=== PATIENT | male | born 1980 ===

== ENCOUNTER 2018-06-30 11:13 | Inpatient (IN) | payer MEDICAID ==
[2018-06-30 12:03] LABS: BASO # 0.1 K/uL (0.0-0.2); BASO % 1.5 % (0.0-2.0); EOS # 0.2 K/uL (0.0-0.7); EOS % 4.8 % (0.0-4.0); HEMOGLOBIN 14.1 g/dL (12.0-18.0); LYMPH # 1.4 K/uL (1.0-4.3); LYMPH % 30.6 % (20.0-40.0); MEAN CELL VOLUME 92.6 fL (80.0-94.0); MEAN CORPUSCULAR HEMOGLOBIN 31.5 pg (27.0-31.0); MEAN PLATELET VOLUME 9.3 fL (7.2-11.7); MONO # 0.4 K/uL (0.0-0.8); MONO % 8.7 % (0.0-10.0); NEUT # 2.6 K/uL (1.8-7.0); NEUT % 54.4 % (50.0-75.0); RBC 4.47 Mil/uL (4.40-5.90); RED CELL DISTRIBUTION WIDTH 14.1 % (11.5-14.5); WHITE BLOOD COUNT 4.7 K/uL (4.8-10.8)
[2018-06-30 12:05] VITALS: O2SAT 97
[2018-06-30 12:08] LABS: SQUAMOUS EPITHIAL < 1 /hpf (0-5); URINE BILIRUBIN NEGATIVE (NEGATIVE); URINE BLOOD NEGATIVE (NEGATIVE); URINE CLARITY Hazy (Clear); URINE COLOR Yellow (YELLOW); URINE GLUCOSE (UA) 3+ mg/dL (Normal); URINE LEUKOCYTE ESTERASE NEG Leu/uL (Negative); URINE PROTEIN NEGATIVE (NEGATIVE); URINE UROBILINOGEN NORMAL mg/dL (0.2-1.0)
[2018-06-30 12:18] LABS: ALB/GLOB RATIO 1.7 (1.0-2.1); ALBUMIN 4.3 g/dL (3.5-5.0); ALT/SGPT 15 U/L (21-72); AST/SGOT 31 U/L (17-59); BLOOD UREA NITROGEN 12 mg/dL (9-20); CALCIUM 9.1 mg/dl (8.6-10.4); GFR NON-AFRICAN AMERICAN > 60
[2018-06-30 12:28] LABS: BARBITURATES, UR NEGATIVE (NEGATIVE); BENZODIAZEPINES, UR NEGATIVE (NEGATIVE); OPIATES, UR NEGATIVE (NEGATIVE); PHENCYCLIDINE, UR NEGATIVE (NEGATIVE)
--- NOTE | 2018-06-30 13:42 | C.PDOC ---
Time Seen by Provider: 06/30/18 11:19 Chief Complaint (Nursing): Psychiatric Evaluation Past Medical History Vital Signs: Last Vital Signs Temp 98.9 F 06/30/18 12:04 Pulse 90 06/30/18 12:04 Resp 16 06/30/18 12:04 BP 133/79 06/30/18 12:04 Pulse Ox 97 06/30/18 12:04 - Medical History PMH: Anxiety, Bipolar Disorder, Depression, Diabetes, HTN, Hypercholesterolemia, Schizophrenia Denies: Hepatitis, HIV, Chronic Kidney Disease, Seizures, Sexually Transmitted Disease - [facility] Procedures GROUP PSYCHOTHERAPY (05/21/18) INDIV PSYCHOTHERAPY FOR SUBSTANCE ABUSE, MOTIVATION ENHANCE (05/21/18) INDIVIDUAL PSYCHOTHERAPY, SUPPORTIVE (05/21/18) Family History: States: Unknown Family Hx - Social History Hx Alcohol Use: No Hx Substance Use: No - Immunization History Hx Tetanus Toxoid Vaccination: No Hx Influenza Vaccination: No Hx Pneumococcal Vaccination: No ED Course And Treatment - Laboratory Results Result Diagrams: 06/30/18 11:57 06/30/18 11:57 Lab Results: Total Bilirubin 0.5 mg/dL (0.2-1.3) 06/30/18 11:57 AST 31 U/L (17-59) 06/30/18 11:57 ALT 15 U/L (21-72) L 06/30/18 11:57 Alkaline Phosphatase 63 U/L (38-126) 06/30/18 11:57 Total Protein 6.9 g/dL (6.3-8.3) 06/30/18 11:57 Albumin 4.3 g/dL (3.5-5.0) 06/30/18 11:57 Globulin 2.6 gm/dL (2.2-3.9) 06/30/18 11:57 Albumin/Globulin Ratio 1.7 (1.0-2.1) 06/30/18 11:57 Urine Color Yellow (YELLOW) 06/30/18 11:57 Urine Clarity Hazy (Clear) 06/30/18 11:57 Urine pH 7.0 (5.0-8.0) 06/30/18 11:57 Ur Specific [place] 1.015 (1.003-1.030) 06/30/18 11:57 Urine Protein Negative mg/dL (NEGATIVE) 06/30/18 11:57 Urine Glucose (UA) 3+ mg/dL (Normal) H 06/30/18 11:57 Urine Ketones Negative mg/dL (NEGATIVE) 06/30/18 11:57 Urine Blood Negative (NEGATIVE) 06/30/18 11:57 Urine Nitrate Negative (NEGATIVE) 06/30/18 11:57 Urine Bilirubin Negative (NEGATIVE) 06/30/18 11:57 Urine Urobilinogen Normal mg/dL (0.2-1.0) 06/30/18 11:57 Ur Leukocyte Esterase Neg Sae/uL (Negative) 06/30/18 11:57 Urine WBC (Auto) 1 /hpf (0-5) 06/30/18 11:57 Urine RBC (Auto) < 1 /hpf (0-3) 06/30/18 11:57 Ur Squamous Epith Cells < 1 /hpf (0-5) 06/30/18 11:57 O2 Sat by Pulse Oximetry: 97 Disposition - Disposition
--- NOTE | 2018-06-30 13:43 | C.PDOC ---
History Of Present Illness 38 year old male is brought in by [facility] from [facility] services for psychiatric evaluation. Reports he has been feeling depressed and thoughts of hurting himself for the past 3 days. Denies having any specific plan. States he takes multiple psychiatric medications but he ran out one week ago. Admits to drinking alcohol heavily for 3 days. Complains of left upper quadrant pain. Denies any nausea, vomiting, diarrhea, fever, shortness of breath, or chest pain. Time Seen by Provider: 06/30/18 11:19 Chief Complaint (Nursing): Psychiatric Evaluation History Per: Patient, EMS History/Exam Limitations: no limitations Onset/Duration Of Symptoms: Days Current Symptoms Are (Timing): Still Present Suicide/Self Injury Attempted (Context): None Modifying Factor(s): Alcohol Associated Symptoms: Depression, Suicidal Thoughts. denies: Suicidal Plan Past Medical History Reviewed: Historical Data, Nursing Documentation, Vital Signs Vital Signs: Last Vital Signs Temp 98.9 F 06/30/18 12:04 Pulse 90 06/30/18 12:04 Resp 16 06/30/18 12:04 BP 133/79 06/30/18 12:04 Pulse Ox 97 06/30/18 12:04 - Medical History PMH: Anxiety, Bipolar Disorder, Depression, Diabetes, HTN, Hypercholesterolemia, Schizophrenia Denies: Hepatitis, HIV, Chronic Kidney Disease, Seizures, Sexually Transmitted Disease Surgical History: No Surg Hx - [facility] Procedures GROUP PSYCHOTHERAPY (05/21/18) INDIV PSYCHOTHERAPY FOR SUBSTANCE ABUSE, MOTIVATION ENHANCE (05/21/18) INDIVIDUAL PSYCHOTHERAPY, SUPPORTIVE (05/21/18) Family History: States: No Known Family Hx - Social History Hx Alcohol Use: No Hx Substance Use: No - Immunization History Hx Tetanus Toxoid Vaccination: No Hx Influenza Vaccination: No Hx Pneumococcal Vaccination: No Review Of Systems Constitutional: Negative for: Fever, Sweats Cardiovascular: Negative for: Chest Pain Respiratory: Negative for: Shortness of Breath Gastrointestinal: Positive for: Abdominal Pain. Negative for: Nausea, Vomiting, Diarrhea Psych: Positive for: Depression, Suicidal ideation Physical Exam - Physical Exam Appears: Non-toxic, No Acute Distress, Other (flat affect) Skin: Warm, Dry Head: Normacephalic Eye(s): bilateral: Normal Inspection Oral Mucosa: Moist Neck: Supple Chest: Symmetrical Cardiovascular: Rhythm Regular Respiratory: No Rales, No Wheezing Gastrointestinal/Abdominal: Soft, Tenderness (mild LUQ tenderness ), No Guarding, No Rebound, Other (Neg Mcburney's point, Neg Caro's sign ) Back: No CVA Tenderness Extremity: Bilateral: Normal Color And Temperature, Normal ROM Neurological/Psych: Oriented x3, Normal Speech Gait: Steady ED Course And Treatment - Laboratory Results Result Diagrams: 06/30/18 11:57 06/30/18 11:57 Lab Results: Total Bilirubin 0.5 mg/dL (0.2-1.3) 06/30/18 11:57 AST 31 U/L (17-59) 06/30/18 11:57 ALT 15 U/L (21-72) L 06/30/18 11:57 Alkaline Phosphatase 63 U/L (38-126) 06/30/18 11:57 Total Protein 6.9 g/dL (6.3-8.3) 06/30/18 11:57 Albumin 4.3 g/dL (3.5-5.0) 06/30/18 11:57 Globulin 2.6 gm/dL (2.2-3.9) 06/30/18 11:57 Albumin/Globulin Ratio 1.7 (1.0-2.1) 06/30/18 11:57 Urine Color Yellow (YELLOW) 06/30/18 11:57 Urine Clarity Hazy (Clear) 06/30/18 11:57 Urine pH 7.0 (5.0-8.0) 06/30/18 11:57 Ur Specific [place] 1.015 (1.003-1.030) 06/30/18 11:57 Urine Protein Negative mg/dL (NEGATIVE) 06/30/18 11:57 Urine Glucose (UA) 3+ mg/dL (Normal) H 06/30/18 11:57 Urine Ketones Negative mg/dL (NEGATIVE) 06/30/18 11:57 Urine Blood Negative (NEGATIVE) 06/30/18 11:57 Urine Nitrate Negative (NEGATIVE) 06/30/18 11:57 Urine Bilirubin Negative (NEGATIVE) 06/30/18 11:57 Urine Urobilinogen Normal mg/dL (0.2-1.0) 06/30/18 11:57 Ur Leukocyte Esterase Neg Sae/uL (Negative) 06/30/18 11:57 Urine WBC (Auto) 1 /hpf (0-5) 06/30/18 11:57 Urine RBC (Auto) < 1 /hpf (0-3) 06/30/18 11:57 Ur Squamous Epith Cells < 1 /hpf (0-5) 06/30/18 11:57 O2 Sat by Pulse Oximetry: 97 (RA) Pulse Ox Interpretation: Normal Progress Note: Blood work, UA, UDS ordered and reviewed. Patient given PO pepcid for dyspepsia. 2:45pm- Patient medically cleared. 3:15pm- Patient accepted for psychiatric admission for schizoaffective disorder, alcohol abuse - Dr. York. Disposition - Disposition Forms: [employer] (Malay) - Scribe Statement The provider has reviewed the documentation as recorded by the Scribe Amy Vázquez All medical record entries made by the Scribe were at my direction and personally dictated by me. I have reviewed the chart and agree that the record accurately reflects my personal performance of the history, physical exam, medical decision making, and the department course for this patient. I have also personally directed, reviewed, and agree with the discharge instructions and disposition. Decision To Admit - Pt Status Changed To: Hospital Disposition Of: Inpatient - Admit Certification Admit to Inpatient:: After my assessment, the patient will require hospitalization for at least two midnights. This is because of the severity of symptoms shown, intensity of services needed, and/or the medical risk in this patient being treated as an outpatient. - . Bed Request Type: Psychiatry
--- NOTE | 2018-06-30 17:10 | PCM.BM ---
<Alicia Calles - Last Filed: 06/30/18 17:07> Treatment Plan Problems - Problems identified on initial assessmt Altered Sleep Pattern Date Initiated: 06/30/18 Time Initiated: 17:08 Assessment reference: NA Status: Active Social Isolation Date Initiated: 06/30/18 Time Initiated: 17:08 Assessment reference: NA Status: Active Ineffective Coping Date Initiated: 06/30/18 Time Initiated: 17:08 Assessment reference: NA Treatment assets and liabiliti Patient Assests: cooperative, insightful, ADL independent, negotiates basic needs, cognitively intact, good interpersonal skills Patient Liabilities: substance abuse (Alcohol when doesn't have meds) - Milieu Protocol Maintain good personal hygiene: daily Encourage regular showers, daily Remind patient to perform daily oral care, daily Assist patient to perform ADL's Conduct patient checks and document Observation sheet: Q15 minutes Maintain personal safety: every shift Educate patient to report safety concerns to staff, every shift Monitor environment for contraband/sharps Medication safety: Monitor for expected outcome, potential side effects: every shift, Assess barriers to learning: every shift, Assess readiness for medication education: every shift <Flora Conroy - Last Filed: 07/01/18 11:52> - Diagnosis (1) Depression Status: Acute Interventions: 07/01/18 11:57 * Assess/adjust medications daily and /or as needed * See patient on an individual basis 7x/week to assess symptoms of depression * Monitor for side effects & effectiveness of medications * <Antoinette Barros - Last Filed: 07/01/18 12:50> Family Contact Family involvement: Patient does not wish Family/SO involvement Family contact: Patient declines to allow family contact at present - Goals for Treatment Patient goals for treatment: "[facility] Discharge/Continuing Care - Education Needs Education Needs: Patient Medication, Patient Diagnosis/Disease Process, Patient Coping Skills - Discharge Discharge Criteria: Free of Suicidal thoughts, Ability to care for self, No longer exhibiting s/s of withdrawal, Reduction of target symptoms Discharge to:: Home, With Family - Treatment Team Participation Discussed with Family/SO: No Was Patient/Family/SO present at Treatment Team Meeting: Yes
--- NOTE | 2018-07-01 11:44 | PCM.PSYCH ---
Initial Psychiatric Evaluation - Initial Psychiatric Evaluation Type of Admission: Voluntary Legal Status: Capacity Chief Complaint (in patient's own words): "Depressed" History of Present Illness and Precipitating Events: 38 y/o male with no children. 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 Pt [facility] for depression, anxiety, and hearing voices. Pt has a history of depression, and states that he ran out of his medications over one week ago. Pt began drinking alcohol when he ran out of his medications. After 3 days he became depressed and started hearing voices.His last drink was 3 days ago. States that he went to the [place] ED, where he was seen by crisis and referred to [facility] but they brought him here for intake and medication management. Per pt, voices in his head were telling him to kill himself. He does not currently have a plan to kill himself. Pt has attempted suicide once in [place], where he tried to jump from a bridge. States that he police stopped him. Pt was hospitalized at [facility] in [place] at the time. When he is off his medications, he feels paranoid and begins hearing a female voice. Denies recent hallucinations.Pt has a history of trauma as a child. States that he saw any people as a child in the [place] civil war. Reports night jade, stating that he sees past trauma as they happened. PMHX: DM Medications: Metfromin , Januvia Psych Hx: PTSD, Alcohol Dependence, Major Depression Fam Psych: Unknown Current Medications: Active Medications Generic Name Dose Route Start Last Admin Trade Name Ivánq PRN Reason Stop Dose Admin Acetaminophen 650 mg 06/30/18 17:23 Tylenol 325mg Tab PO Q6 PRN Pain, Mild (1-3) Lorazepam 0.5 mg 06/30/18 17:21 06/30/18 17:46 Ativan PO 0.5 mg Q6 PRN Administration Anxiety Risperidone 1 mg 06/30/18 22:00 06/30/18 21:29 Risperdal Tab PO 1 mg HS MIMI Administration Trazodone HCl 50 mg 06/30/18 17:22 06/30/18 21:29 Desyrel PO 50 mg HS PRN Administration Insomnia Past Psychiatric History - Past Psychiatric History Previous Treatment History: Inpatient Pertinent Medical Hx (Current Medical&Sleep Prob, Allergies): Allergies Allergy/AdvReac Type Severity Reaction Status Date / Time No Known Allergies Allergy Verified 06/30/18 11:21 MetFORMIN [glucoPHAGE] 1,000 mg PO BID 05/22/18 Atorvastatin [Lipitor] 40 mg PO DAILY 30 Days #30 tab 05/27/18 Gabapentin [Neurontin] 200 mg PO TID 30 Days #180 cap 05/27/18 Nicotine 14 mg/24 hr [Nicoderm CQ] 1 patch TD DAILY 30 Days #30 patch 05/27/18 Risperidone [Risperdal M-TAB] 1 mg PO HS 30 Days #30 odt 05/27/18 Sertraline [Zoloft] 50 mg PO DAILY 30 Days #30 tab 05/27/18 traZODone [Desyrel] 50 mg PO HS 30 Days #30 tab 05/27/18 Review of Systems - Psychiatric Psychiatric: Abnormal Sleep Pattern, Anhedonia, Anxiety, Auditory Hallucinations, Difficulty Concentrating, Irritability, Mood Swings. absent: Homicidal Ideation, Suicidal Ideation Mental Status Examination - Personal Presentation Personal Presentation: Looks stated age - Affect Affect: Constricted - Motor Activity Motor Activity: Calm - Reliability in Providing Information Reliability in Providing Information: Good - Speech Speech: Organized - Mood Mood: Depressed, Anxious - Formal Thought Process Formal Thought Process: No Impairment - Cognitive Functions Orientation: Person, Place, Situation, Time Sensorium: Alert Attention/Concentration: Easily distracted Estimate of Intelligence: Average Judgement: Intact, as evidence by: Insight regarding need for hospitalization Memory: Recent intact, as evidence by: Ability to recall events of the day, Remote intact, as evidenced by: Ability to recall historical events - Risk Risk: Withdrawal, Diminished functioning - Strength & Assets Inventory Strength & Assets Inventory: Cooperative - Limitations Limitations: Other DSM 5 DX - DSM 5 DSM 5 Diagnosis: Schizoaffective d/o - depressed PTSD Alcohol use d/o -severe - Recommended/Plan of Treatment Treatment Recommendations and Plan of Treatment: Abilify and zoloft Taper with librium if neede Gabapentin for augmentation As needed medications All risks, benefits and alternatives of the meds discussed, and the pt agreed and understood. Attend groups and activities Supportive therapy and psychoeducation HI for abstinence CBT for relapse prevention Encourage MAT Refer to rehab or IOP, and self-help groups Teach healthy lifestyle methods, i.e. diet, exercise, meditation Smoking cessation with HI Nicotine patch if needed 34 min Projected ELOS: 4 days
[2018-07-01] MEDS: Multiple Vitamins Tab PO SCH (12:21)
[2018-07-02] MEDS: Multiple Vitamins Tab PO SCH (09:38)
--- NOTE | 2018-07-02 13:13 | PCM.PYCHPN ---
Psychiatric Progress Note - Psychiatric Progress Note Patient seen today, length of contact: 16 min Patient Chief Complaint: "Not good" Problems Identified/Issues Discussed: The pt is seen, chart reviewed, case discussed with staff. The pt is compliant with medications and reports no side-effects. Symptoms are improving but needs more time to stabilize. Pt attends groups and activities. Support given, psycho-education provided. After care discussed. Medication Change: Yes (meds adjusted) Medical Record Reviewed: Yes Mental Status Examination - Cognitive Function Orientation: Person, Place, Situation, Time Memory: Intact Attention: WNL Concentration: Poor Association: WNL Fund of Knowledge: WNL - Mood Mood: Depressed, Anxious - Affect Affect: Constricted - Speech Speech: Appropriate - Formal Thought Process Formal Thought Process: No Impairment - Suicidal Ideation Suicidal Ideation: No - Homicidal Ideation Homicidal Ideation: No Goal/Treatment Plan - Goal/Treatment Plan Need for Continued Stay: Discharge may exacerbated symptoms, Severe functional impairment Progress Toward Problem(s) and Goals/Treatment Plan: Continue medications Support and psychoeducation daily Attend groups and activities daily After care planning by ZENOBIA
[2018-07-03 06:34] VITALS: TEMP 98.3
[2018-07-03] MEDS: Multiple Vitamins Tab PO SCH (09:35)
--- NOTE | 2018-07-03 15:23 | PCM.PYCHPN ---
Psychiatric Progress Note - Psychiatric Progress Note Patient seen today, length of contact: 17 min Patient Chief Complaint: "Better today" Problems Identified/Issues Discussed: The pt is seen, chart reviewed, case discussed with staff. Support and psychoeducation given, CBT and [place] used briefly Pt is improving slowly and needs more time, still has ongoing symptoms. No SEs from medications, risks discussed. After care discussed Medication Change: Yes (meds adjusted) Medical Record Reviewed: Yes Mental Status Examination - Cognitive Function Orientation: Person, Place, Situation, Time Memory: Intact Attention: WNL Concentration: Poor Association: WNL Fund of Knowledge: WNL - Mood Mood: Depressed, Anxious - Affect Affect: Constricted - Speech Speech: Appropriate - Formal Thought Process Formal Thought Process: No Impairment - Suicidal Ideation Suicidal Ideation: No - Homicidal Ideation Homicidal Ideation: No Goal/Treatment Plan - Goal/Treatment Plan Need for Continued Stay: Discharge may exacerbated symptoms, Severe functional impairment Progress Toward Problem(s) and Goals/Treatment Plan: Continue medications Support and psychoeducation daily Attend groups and activities daily After care planning by ZENOBIA He will go to [facility] Estimated Date of D/C: 07/04/18
[2018-07-04 06:47] VITALS: BP 114/73; PULSE 81; RESP 20
[2018-07-04] MEDS: Multiple Vitamins Tab PO SCH (09:23)
--- NOTE | 2018-07-04 09:43 | PCM.PYCHDC ---
Mental Status Examination - Mental Status Examination Orientation: Person, Place, Situation, Time Memory: Intact Mood: Anxious Affect: Constricted Speech: Appropriate Attention: WNL Concentration: WNL Association: WNL Fund of Knowledge: WNL Formal Thought Process: No Impairment Suicidal Ideation: No Current Homicidal Ideation?: No Discharge Summary - Discharge Note Reason for Hospitalization: Schizoaffective d/o - depressed PTSD Alcohol detox Consultations:: List each consultation separately and include: 1. Reason for request. 2. Findings. 3. Follow-up Summary of Hospital Course include:: 1. Description of specific treatment plan utilized for patients during their course of treatmen. 2. Summarize the time- course for resolution of acute symptoms and/or regressed behaviors. 3. Describe issues identified and worked on during hospitalization. 4. Describe medication utilized. 5. Describe medical problems identified and treated. 6. Reassessment of suicide risk Summary of Hospital Course: On admission: 38 y/o male with no children. 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 Pt was admitted to inpatient [facility] for depression, anxiety, and hearing voices. Pt has a history of depression, and states that he ran out of his medications over one week ago. Pt began drinking alcohol when he ran out of his medications. After 3 days he became depressed and started hearing voices.His last drink was 3 days ago. States that he went to the [place] ED, where he was seen by crisis and referred to [facility] crisis but they brought him here for intake and medication management. Per pt, voices in his head were telling him to kill himself. He does not currently have a plan to kill himself. Pt has attempted suicide once in [place], where he tried to jump from a bridge. States that he police stopped him. Pt was hospitalized at [facility] in [place] at the time. When he is off his medications, he feels paranoid and begins hearing a female voice. Denies recent hallucinations.Pt has a history of trauma as a child. States that he saw any people as a child in the [place] civil war. Reports night jade, stating that he sees past trauma as they happened. PMHX: DM Medications: Metfromin , Januvia Psych Hx: PTSD, Alcohol Dependence, Major Depression Fam Psych: Unknown The pt was admitted and started on treatment with psychotherapy, support, psychoeducation and medications. [place] and CBT used. The pt attended groups and activities, as well as milieu therapy. All the risks and benefits of medications are discussed and the patient understood and agreed. The pt improved with the treatments provided. After care discussed with the patient. Pt will go to [facility] but his appointment is in July. He will go to until then. One extra refill is given for meds. - Final Diagnosis (DSM 5) Condition upon Discharge: GOOD DSM 5: Schizoaffective d/o - depressed PTSD Alcohol use d/o -severe Disposition: HOME/ ROUTINE Follow-up Treatment Plan: Continue below medications after discharge. Follow after care plan as discussed. Use relapse prevention skills Return to ER or call 911 if suicidal, homicidal or symptoms relapse. Stay away from stress, alcohol and drugs. See primary doctor regularly and get labs. Prescriptions/Medication Reconciliation: ARIPiprazole [Abilify] 5 mg PO HS #30 tab Atorvastatin [Lipitor] 40 mg PO DAILY 30 Days #30 tab Gabapentin [Neurontin] 300 mg PO BID #60 cap metFORMIN [glucOPHAGE] 1,000 mg PO BID #60 tab Sertraline [Zoloft] 50 mg PO DAILY #30 tab traZODone [Desyrel] 50 mg PO HS PRN #30 tab PRN Reason: Insomnia
== END 2018-07-04 11:02 | disposition home or self-care (01) | DRG 750 ==
LOC: C.ER 11:13 → C.9E 15:19 → C.5E 15:48
PROVIDERS: ADMIT Psychiatry & Neurology Psychiatry; ATTEND Psychiatry & Neurology Psychiatry
PROC: HZ52ZZZ Individual Psychotherapy for Substance Abuse Treatment, Cognitive-Behavioral (ICD-10-PCS; principal; 2018-06-30)
PROC: HZ59ZZZ Individual Psychotherapy for Substance Abuse Treatment, Supportive (ICD-10-PCS; 2018-06-30)
PROC: HZ56ZZZ Individual Psychotherapy for Substance Abuse Treatment, Psychoeducation (ICD-10-PCS; 2018-06-30)
PROC: HZ42ZZZ Group Counseling for Substance Abuse Treatment, Cognitive-Behavioral (ICD-10-PCS; 2018-06-30)
PROC: HZ46ZZZ Group Counseling for Substance Abuse Treatment, Psychoeducation (ICD-10-PCS; 2018-06-30)
PROC: GZHZZZZ Group Psychotherapy (ICD-10-PCS; 2018-06-30)
PROC: GZ58ZZZ Individual Psychotherapy, Cognitive-Behavioral (ICD-10-PCS; 2018-06-30)
PROC: GZ56ZZZ Individual Psychotherapy, Supportive (ICD-10-PCS; 2018-06-30)
DX: F25.1 Schizoaffective disorder, depressive type (principal); E11.9 Type 2 diabetes mellitus without complications; I10 Essential (primary) hypertension; F10.20 Alcohol dependence, uncomplicated; F43.10 Post-traumatic stress disorder, unspecified; F31.9 Bipolar disorder, unspecified; E78.00 Pure hypercholesterolemia, unspecified; Z91.5 Personal history of self-harm; Y90.0 Blood alcohol level of less than 20 mg/100 ml